=== PATIENT | male | born 2000 | race African-American/Black ===

== ENCOUNTER → 2019-02-15 | Outpatient (CLI) | payer OTHER ==
--- NOTE | 2019-02-15 17:53 | Diagnostic Imaging Report ---
INDICATION: Injury to left wrist. AP, oblique, and lateral views of the left wrist are obtained. No fracture or acute bony abnormality is seen. Joint spaces are unremarkable. IMPRESSION: Negative left wrist. Dictated by: Dictated on workstation # [id number]
== END ==
LOC: RAD FS 15:32
PROVIDERS: ATTEND Nurse Practitioner
DX: S69.92XA Unspecified injury of left wrist, hand and finger(s), initial encounter (principal); X58.XXXA Exposure to other specified factors, initial encounter
CPT/HCPCS: 73110

== ENCOUNTER → 2019-02-16 | Outpatient (CLI) | payer OTHER ==
--- NOTE | 2019-02-16 19:12 | Diagnostic Imaging Report ---
PROCEDURE: CT left upper extremity without contrast. TECHNIQUE: Multiple contiguous axial images were obtained through the left upper extremity without the use of intravenous contrast. Auto Exposure Controls were utilized during the CT exam to meet ALARA standards for radiation dose reduction. INDICATION: Left wrist pain after injury. COMPARISON: None available. FINDINGS: No acute or healing fracture. Specifically, there is no fracture within the scaphoid. There is no abnormal alignment of the carpal bones to suggest intrinsic ligamentous injury. The flexor and extensor tendons about the wrist are grossly normal by CT. No discrete soft tissue swelling. IMPRESSION: 1. No acute or healing fracture. 2. No CT features of soft tissue injury about the wrist. Dictated by: Dictated on workstation # [id number]
== END ==
LOC: RAD FS 14:37
PROVIDERS: ATTEND Nurse Practitioner
DX: S63.512A Sprain of carpal joint of left wrist, initial encounter (principal)
CPT/HCPCS: 73200

== ENCOUNTER → 2019-03-08 | Outpatient (CLI) | payer OTHER ==
--- NOTE | 2019-03-08 09:19 | Diagnostic Imaging Report ---
INDICATION: Sprain of carpal joint left wrist. COMPARISON: 02/15/2019 TECHNIQUE: 4 radiographs of the left wrist dated 03/08/2019 FINDINGS: No acute fracture or dislocation. No destructive osseous process. Carpal alignment is well maintained. No suspicious radiopaque foreign body. IMPRESSION: Stable examination without acute osseous abnormality. Dictated by: Dictated on workstation # [id number]
== END ==
LOC: RAD FS 08:54
PROVIDERS: ATTEND Nurse Practitioner
DX: S63.512A Sprain of carpal joint of left wrist, initial encounter (principal)
CPT/HCPCS: 73110